=== PATIENT | female | born 1965 | race Caucasian/White ===

== ENCOUNTER 2016-09-07 13:35 | Inpatient (IN) | payer OTHER ==
[~2016-09-07] VITALS: Ht 162.6 cm; Wt 80.7 kg
--- NOTE | ~2016-09-07 | HC ---
[facility] [place] [address] CONSULTATION Name: GISSELLGUILLE DORANTES Room #: 401-I [facility] IN M.R.#: [id number] Admission: 09/07/16 Attend Phys: Anant Bay MD Discharge: 09/11/16 Date of : 67 Report #: [id number] THIS REPORT FOR: //name// CC: NO PCP Anant Bay DATE OF SERVICE: 09/10/2016 TYPE OF REPORT: General surgery consultation. ATTENDING PHYSICIAN: Anant Bay M.D. CONSULTING PHYSICIAN: Troy Faulkner M.D. REASON FOR CONSULTATION: Abdominal pain, nausea and vomiting with distention, weight gain, and increased abdominal girth. HISTORY OF PRESENT ILLNESS: This is a 51-year-old female patient who has had difficulty with intermittent constipation over the past couple of weeks with an 18 pound weight again, abdominal distention, and increase in abdominal girth. She has had difficulty with constipation in the past. She underwent a KUB that showed no evidence for obstruction. She tried an enema and clear liquid diet with no significant improvement in her symptoms. She then developed nausea and vomiting. She was seen in the [facility] where a CT of the abdomen and pelvis showed a recurrent ventral hernia with partially displaced mesh. GI was consulted. The patient underwent various laboratory studies. The patient was evaluated by gastroenterology (Dr. Daniel Haines) and underwent both upper and lower endoscopy. EGD showed grade A erosive esophagitis but was otherwise normal. Her flexible sigmoidoscopy with biopsy showed no evidence for obvious colitis. Small internal hemorrhoids were seen as well as a small anal failure, but this was otherwise normal. No cause for the patient's abdominal pain could be ascertained. I have been asked to see the patient for further evaluation and treatment. PAST MEDICAL AND SURGICAL HISTORY: Includes back pain, peptic ulcer disease, history of. History of ovarian torsion, questionable seizure disorder (anti-seizure medication discontinued as she was felt to have been misdiagnosed), history of lumbar fusion, previous umbilical hernia repair with mesh and cholecystectomy. MEDICATIONS: Please see the electronic medical record for details. ALLERGIES: IV CONTRAST, BETADINE SOAP causes rash and swelling, PENICILLIN causes rash and swelling, SULFA DRUGS causes a rash, and ZOFRAN. She is also allergic IV DYE. [address] [address] CONSULTATION Name: GISSELLGUILLE JAYNA Room #: 401-I [facility] IN .R.#: [id number] Admission: 09/07/16 Attend Phys: Anant Bay MD Discharge: 09/11/16 Date of : 67 Report #: [id number] FAMILY HISTORY: Reviewed and noncontributory to this hospitalization. SOCIAL HISTORY: The patient denies any use of tobacco, alcohol or illicit drugs. 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 REVIEW OF SYSTEMS: As per history of present illness and in addition: GENERAL: The patient denies unintentional weight loss. She has been gaining weight. Denies fever or chills. HEENT: Denies changes in taste, vision, hearing or smell. RESPIRATORY: Denies shortness of breath, COPD or asthma. CARDIOVASCULAR: Denies chest pain or palpitations. GASTROINTESTINAL: As per history of present illness. Denies bright red blood per rectum. GENITOURINARY: Denies dysuria, urgency, increased urinary frequency or hematuria. MUSCULOSKELETAL: Denies myalgia or arthralgia. NEUROLOGICAL: Denies headaches, numbness or tingling. PSYCHIATRIC: Denies depression, anxiety or suicidal ideations. SKIN AND INTEGUMENTARY: Denies new skin lesions, rashes or moles. ENDOCRINE: Denies polydipsia, polyuria, heat or cold intolerance. HEMATOLOGIC: Denies easy bleeding, bruising or anemia. All other review of systems is negative. PHYSICAL EXAMINATION: VITAL SIGNS: Temperature 98.0, blood pressure 126/87, pulse 69, respirations 18, height 5 feet 4 inches and weight 178 pounds. GENERAL: This is a 51-year-old female patient, in no acute distress. She is accompanied by her . HEENT: Atraumatic and normocephalic with moist mucosal membranes. Oropharynx is clear. She has no scleral icterus. NECK: Supple. No appreciable lymphadenopathy. Trachea is midline. CHEST: Clear bilaterally. No crackles or wheezes. CARDIOVASCULAR: Regular rate and rhythm. S1 and S2. ABDOMEN: Soft and slightly distended. She has tenderness to palpation near the umbilicus where an incisional scar seen, which extends down to the pubis. There is no overlying erythema or edema. She has no rebound or guarding. No palpable masses. GENITOURINARY: Normal external female genitalia. EXTREMITIES: No clubbing, cyanosis or edema. NEUROLOGICAL: Cranial nerves 2 through 12 grossly intact. PSYCHIATRIC: Normal mood and affect. SKIN AND INTEGUMENTARY: No acute inflammatory changes, rashes or lesions are present. LABORATORY DATA: CBC from this morning shows a white blood cell count of 5.7, [address] [place] [address] CONSULTATION Name: GUILLE BORRERO Room #: 401-I [facility] IN Mihaela#: [id number] Admission: 09/07/16 Attend Phys: Anant Bay MD Discharge: 09/11/16 Date of : 67 Report #: [id number] hemoglobin 12.1, hematocrit 35.6 and platelets 252. Her electrolytes showed a sodium 141, potassium 3.7, chloride 106, CO2 of 25, BUN 6, creatinine 0.7 and glucose 115. Her transaminases were mildly elevated with an AST of 70, ALT of 152 and alkaline phosphatase 188. RADIOLOGIC STUDIES: CT of the abdomen and pelvis showed previous umbilical hernia repair with mesh present that appeared to be partially displaced with presence of a recurrent hernia at the umbilicus. No acute inflammatory changes were identified. There was no evidence for a bowel obstruction. Abdominal ultrasound showed cholecystectomy changes, but was otherwise negative. IMPRESSION AND PLAN: This is a 51-year-old female patient with abdominal pain as well as increased abdominal girth and unintentional weight gain. She has had chronic constipation. She has evidence for a recurrent ventral hernia with partially displaced mesh. There is no evidence for a small-bowel obstruction on the imaging studies. The patient would benefit from repair of her recurrent ventral hernia. We discussed the pathophysiology and natural history of abdominal wall hernias as well as treatment alternatives and surgical options. The patient will be scheduled for laparoscopic repair of her recurrent incisional ventral hernia. The old mesh will need to be explantated. If there does appear to be bowel involvement, the patient may require bowel resection and open repair of her recurrent hernia. The patient expressed understanding of the risks, benefits, and expectations of the operation, which were discussed in detail. The patient will be scheduled to undergo the operation at the next earliest availability. I sincerely appreciate the opportunity to appear to participate in the care of this patient and will leave further recommendations and orders in the electronic medical record as appropriate. <ELECTRONICALLY SIGNED> By: Troy Faulkner MD, FACS 09/12/16 0924 1520 [id number] Troy Faulkner MD, FACS /nt
--- NOTE | ~2016-09-07 | S ---
[facility] [place] [address] SURGICAL PATH RPT PROCEDURE Name: GUILLE PIMENTEL JAYNA Room #: 401-I ADM IN M.R.#: [id number] Admission: 09/07/16 Date of : 67 Discharge: Report #: [id number] Path Case #: [id number] PATHOLOGY REPORT COLLECTION DATE: 09/09/2016 RECEIVED DATE: 09/10/2016 SUBMITTING PHYS: Dr. Daniel Haines OTHER PHYS: Dr. Anant Bay SPECIMEN(S) RECEIVED: A.Duodenal bx B.Gastric bx C.Colon random bx * * * * * * * * * * * * FINAL DIAGNOSIS: A. "Duodenal bx", biopsy: - Small bowel/duodenal mucosa with minimal histologic alterations; no evidence of celiac sprue. B. "Gastric bx", biopsy: - Gastric mucosa with mild reactive changes and mild chronic inflammation. - Negative H. pylori immunohistochemical stain (block B1); control reacted appropriately. C. "Colon random bx", biopsy: - Colonic mucosa with minimal histologic alteration; no evidence of active, lymphocytic or collagenous colitis. (CLW:kari; d/t: 09/11/2016) PATHOLOGIST: Teetee Galvez M.D. REPORT ELECTRONICALLY SIGNED BY: Teetee Galvez M.D. DATE/TIME: 09/11/2016 16:27 * * * * * * * * * * * * GROSS PATHOLOGY: A. Received in formalin labeled "Guille Pimentel and duodenum," are 4 segments of wild soft tissue measuring 1.2 x 0.3 x 0.2 cm in aggregate dimensions and ranging from 0.2 to 0.4 cm in maximum dimension. The specimen is submitted entirely in cassette A1. B. Received in formalin labeled "Guille Pimentel and gastric," are 3 segments of wild soft tissue measuring 1.0 x 0.3 x 0.2 cm in aggregate dimensions and ranging from 0.3 to 0.4 cm in maximum dimension. The specimen is submitted entirely in cassette B1. C. Received in formalin labeled "Guille Pimentel and colon," are 4 segments of wild soft tissue measuring 1.9 x 0.3 x 0.2 cm in aggregate dimensions and ranging from 0.3 to 0.7 cm in maximum dimension. The [address] [place] [address] SURGICAL PATH RPT PROCEDURE Name: GUILLE PIMENTEL SHEDD Room #: 401-I ADM IN M.R.#: [id number] Admission: 09/07/16 Date of : 67 Discharge: Report #: [id number] Path Case #: [id number] specimen is submitted entirely in cassette C1. (TTL; 09/10/2016) CLINICAL HISTORY: Bloating INITIAL CPT CODE(S): A; 64784 B; 34236, 73651 C; 58974 Professional services performed by [facility] at [address], [place] [address] Technical services performed by [facility] at [address] [place] [address], [address], [place] [address]. [facility] [address] [place] [address] PHONE: [phone] DIRECTOR: Jaspreet Bush M.D. * * * END OF REPORT * * *
--- NOTE | ~2016-09-07 | H ---
[facility] [place] [address] HISTORY AND PHYSICAL Name: GISSELLGUILLE DORANTES Room #: 401-I [facility] IN M.R.#: [id number] Admission: 09/07/16 Attend Phys: Anant Bay MD Discharge: 09/11/16 Date of : 67 Report #: [id number] THIS REPORT FOR: //name// CC: NO PCP Anant Bay DATE OF SERVICE: 09/07/2016 CHIEF COMPLAINT: Abdominal distention, nausea and vomiting. HISTORY OF PRESENT ILLNESS: The patient is a 51-year-old female who started having problems with constipation about 2 weeks ago. Her condition progressively worsened. About a week ago, she noticed significant abdominal distention. She was seen by healthcare provider at her work. She had KUB that reportedly showed no bowel obstruction. The patient was recommended to have enema and clear liquid diet. Her condition did not improve. The patient started vomiting. She presented to the Emergency Room with these symptoms. In the Emergency Room, the patient's evaluation was unremarkable. CT scan of the abdomen was taken, that showed no bowel obstruction. The patient has umbilical hernia and partially displaced mesh. She has no acute findings. The patient has been hemodynamically stable and afebrile. She denies chest pains, shortness of breath, headache, blurry vision or other symptoms. The patient has history of chronic back pain, and she is status post back surgery years ago. She chronically takes narcotics. PAST MEDICAL HISTORY: 1. Back pain, degenerative joint disease, status post lumbar fusion. 2. GI bleed in 2013 due to peptic ulcer disease. 3. Status post umbilical hernia repair. 4. History of ovarian torsion. 5. Questionable seizure, admission for this few months ago. seizure disorder was not confirmed at [facility]. Keppra was discontinued. 6. Head concussion in May 2016. CURRENT MEDICATIONS: Reviewed and documented in the patient's chart. FAMILY HISTORY: Reviewed and not pertinent to the patient's current condition. SOCIAL HISTORY: The patient does not smoke cigarettes and does not drink alcohol. REVIEW OF SYSTEMS: As above in HPI section, all others negative. [facility] [address] [place] [address] HISTORY AND PHYSICAL Name: GISSELLGUILLEROBINA DORANTES Room #: 401-I [facility] IN [facility].#: [id number] Admission: 09/07/16 Attend Phys: Anant Bay MD Discharge: 09/11/16 Date of : 67 Report #: [id number] PHYSICAL EXAMINATION: GENERAL: The patient is healthy-looking young female who is in no apparent distress. VITAL SIGNS: Blood pressure is 132/75, heart rate is 78, respiration is 16, temperature is 98.5. HEENT: Pupils are equal. Eye movements are normal. The patient has anicteric sclerae. NECK: Supple. The patient has no thyromegaly. JVD is not appreciated. The patient does not have cervical lymphadenopathy. RESPIRATORY: Chest moves symmetrically with breathing. Respiratory sounds are normal. CARDIOVASCULAR: The patient has regular rhythm and rate. She has no murmurs, gallops or rubs. GASTROINTESTINAL: Abdomen is soft and slightly distended. Bowel sounds are present. Bowel sounds are normal, not hyperactive. Hepatomegaly or splenomegaly cannot be palpated. MUSCULOSKELETAL: There is no edema, cyanosis or clubbing. Range of motion is normal. NEUROLOGIC: The patient is alert and oriented x 3. She has no neurological deficits. SKIN: Skin is dry and warm. No skin lesions are seen. LABORATORY DATA: CBC with differential is normal. Basic metabolic profile is normal. Liver function tests showed slightly elevated AST, ALT and alkaline phosphatase. Lipase is not available. TSH in May 2016 was approximately 6. ASSESSMENT AND PLAN: 1. Abdominal distention, nausea and vomiting. No hematemesis or hematochezia. CT scan of the abdomen shows no acute findings, and incidentally the patient is found to have partially displaced umbilical hernia mesh. Likely etiology is narcotic-induced constipation. Again, no bowel obstruction is reported. The patient also has nausea and vomiting. I am consulting GI team for further evaluation. Nausea will be treated with Zofran p.r.n. The patient reports severe abdominal pain, and she states that she responded well to Dilaudid, so this medication for now will be continued. Bowel regimen will be initiated. 2. Mildly elevated TSH in May 2016, at 6. TSH will be repeated. 3. The patient does not have a seizure disorder. 4. History of gastrointestinal bleed in 2014 as a result of peptic ulcer [facility] [address] [place] [address] HISTORY AND PHYSICAL Name: GUILLE BORRERO Room #: 401-I DIS IN M.R.#: [id number] Admission: 09/07/16 Attend Phys: Anant Bay MD Discharge: 09/11/16 Date of : 67 Report #: [id number] disease. Currently, hemoglobin and hematocrit is stable. 5. Deep venous thrombosis prophylaxis. We will use SCDs. <ELECTRONICALLY SIGNED> By: Anant Bay MD 09/13/16 1351 1744 1918 Annat Bay MD /nt
--- NOTE | ~2016-09-07 | P ---
[facility] [place] [address] PROCEDURE REPORT Name: GUILLE BORRERO Room #: 401-I [facility] IN M.R.#: [id number] Admission: 09/07/16 Attend Phys: Anant Bay MD Discharge: 09/11/16 Date of : 67 Report #: [id number] THIS REPORT FOR: //name// CC: NO PCP Anant Bay MD DATE OF SERVICE: 09/09/2016 PROCEDURE PERFORMED: Flexible sigmoidoscopy with biopsies. HISTORY OF PRESENT ILLNESS: The patient is a 51-year-old female with abdominal pain, constipation, and increasing abdominal distention. CT was essentially negative other than showing fluid filled colon consistent with diarrhea. The patient; however, had been feeling constipated and was taking stool softeners, eventually mag citrate over the weekend, continued to complain of bloating and pain. Of note, her lipase was actually elevated on admission. Her pancreas was normal on CT scan. The lipase has normalized today at 189. There has been no previous history of pancreatitis. She has had a previous cholecystectomy. She does have mildly elevated liver function test. Workup is under way. DESCRIPTION OF PROCEDURE: The risks and benefits of the procedure were explained to the patient, those risks including, but not limited to bleeding, perforation, and the risk of sedation. She understood these risks and gave informed consent. Sedation was given using propofol per anesthesia. Next, a digital rectal exam was initially performed, which was normal. Next, using a standard Fujinon colonoscope, the scope was placed in the patient's anus and advanced under direct vision to approximately the hepatic flexure area. The prep was fair in the right colon, was somewhat better in the left colon. Multiple washings and aspirations were performed. Most areas were fairly well visualized. There was no evidence of colitis throughout the transverse, descending and sigmoid colon. Random biopsies were obtained to rule out the possibility of microscopic colitis. The rectal mucosa was normal. On retroflexion, small nonbleeding internal hemorrhoids were noted. Also noted, there was a small anal fissure, nonbleeding. The scope was then withdrawn and the procedure terminated. The patient tolerated the procedure well. IMPRESSION: 1. No evidence of obvious colitis. 2. Small internal hemorrhoids. 3. Small anal fissure. 4. Otherwise, normal flexible sigmoidoscopy. RECOMMENDATIONS: 1. Await biopsy results. 2. We would recommend Analpram b.i.d. for the next 2 weeks and on a p.r.n. [address] [address] PROCEDURE REPORT Name: GUILLE BORRERO Room #: 401-I [facility] IN M.R.#: [id number] Admission: 09/07/16 Attend Phys: Anant Bay MD Discharge: 09/11/16 Date of : 67 Report #: [id number] basis. 3. Etiology of abdominal pain and distention is unclear. We will await biopsy results to rule out sprue and microscopic colitis. The patient is not constipated at this time and her colon was completely decompressed at the end of the procedure. There was no significant solid stool noted throughout the exam today. She did have an elevated lipase suggesting the possibility of pancreatitis, but this is now normalized. She also has had mesh noted on CT, which has partially displaced, unclear if this would cause abdominal pain due adhesions. Thank you for allowing me to participate in her care. <ELECTRONICALLY SIGNED> By: Daniel Haines MD 09/12/16 0820 1705 2358 Daniel Haines MD /nt
--- NOTE | ~2016-09-07 | P ---
[facility] [place] [address] PROCEDURE REPORT Name: GUILLE BORRERO Room #: 401-I [facility] IN M.R.#: [id number] Admission: 09/07/16 Attend Phys: Anant Bay MD Discharge: 09/11/16 Date of : 67 Report #: [id number] THIS REPORT FOR: //name// CC: NO PCP Anant Bay MD DATE OF SERVICE: 09/09/2016 PROCEDURE PERFORMED: Upper endoscopy with biopsies. HISTORY OF PRESENT ILLNESS: The patient is a 51-year-old female who was admitted on 09/07/2016, with complaints of constipation and abdominal pain. She reports weight gain and increased distention of her abdomen. She tried several different regimens including stool softener and later mag citrate as well as enemas over the weekend. She does take pain medications for chronic back pain. She reports thin stools with a small amount of . She also has a history of elevated liver function tests. She had a previous cholecystectomy. CT scan of the abdomen and pelvis on admission shows previous umbilical hernia repair with mesh. The mass is now partially displaced. Pancreas was normal. Colon was fluid filled. Suggesting borderline diarrhea. She then underwent an ultrasound of the abdomen yesterday. No acute intra-abdominal processes were identified. There was no evidence of ascites. She also had an elevated lipase yesterday at 851. Plan is for EGD and flexible sigmoidoscopy. DESCRIPTION OF PROCEDURE: The risks and benefits of the procedure were explained to the patient, those risks including, but not limited to bleeding, perforation, the risk of sedation. She understood these risks and gave informed consent. Sedation was given using propofol per anesthesia. Next, using a standard Reppifyinon upper endoscope, the scope was placed in the patient's mouth and advanced under direct vision through the esophagus, stomach and into the second portion of the duodenum. The upper and mid esophagus was normal in appearance. In the distal esophagus, there was evidence of grade A erosive esophagitis. Overall, the gastric mucosa was normal. Because of the patient's symptoms, biopsies were obtained to rule out H. pylori. The pylorus was normal and patent. The duodenal bulb, first and second portion were all normal. Biopsies were also obtained to rule out the possibility of celiac sprue. The scope was then withdrawn and the procedure terminated. The patient tolerated the procedure well. IMPRESSION: 1. Grade A erosive esophagitis. 2. Otherwise, normal upper endoscopy. RECOMMENDATIONS: 1. Await biopsy results. [address] [address] PROCEDURE REPORT Name: GUILLE BORRERO Room #: 401-I [facility] IN M.R.#: [id number] Admission: 09/07/16 Attend Phys: Anant Bay MD Discharge: 09/11/16 Date of : 67 Report #: [id number] 2. Recommend daily PPI therapy. 3. We will proceed with flexible sigmoidoscopy next today. Thank you for allowing me to participate in her care. <ELECTRONICALLY SIGNED> By: Daniel Haines MD 09/12/16 0820 1702 2343 Daniel Haines MD /nt
--- NOTE | ~2016-09-07 | O ---
[facility] [place] [address] OPERATIVE REPORT Name: GUILLE BORRERO Room #: 401-I [facility] IN M.R.#: [id number] Admission: 09/07/16 Attend Phys: Anant Bay MD Discharge: 09/11/16 Date of : 67 Report #: [id number] THIS REPORT FOR: //name// CC: Anant Bay DATE OF SERVICE: 09/11/2016 SURGEON: Troy Faulkner M.D. CENTER MACHINE SET UP OPERATOR: Wolfgang rAguelles MD. SECOND ENGINEERING COORDINATOR: LIANNE Tovar. PREOPERATIVE DIAGNOSES: 1. Recurrent incisional ventral hernia with possible small-bowel obstruction. 2. Chronic pain. POSTOPERATIVE DIAGNOSES: 1. Recurrent incarcerated incisional ventral hernia. 2. Intraabdominal adhesions. 3. Chronic pain. PROCEDURES: 1. Laparoscopic repair of recurrent incarcerated incisional ventral hernia with mesh (Ventralight ST, 15.2 cm round with ECHO positioning system). 2. Explantation of prior hernia mesh. 3. Laparoscopic lysis of adhesions (47 minutes). ANESTHESIA: General endotracheal anesthesia and local anesthetic. ESTIMATED BLOOD LOSS: 5 mL. SPECIMENS: 1. Explanted hernia mesh. 2. Incarcerated hernia content. COMPLICATIONS: None appreciated. INDICATIONS FOR PROCEDURE: This is a 51-year-old female patient who has had difficulty with chronic pain, chronic constipation and increasing abdominal girth recently. She has undergone numerous studies, none of which have shown any cause for her symptoms. A CT of abdomen and pelvis did reveal a recurrent hernia at the umbilicus (ventral hernia) with the previously placed mesh displaced. The patient had an exam that was consistent with this. She presents now for laparoscopic repair of her recurrent incisional ventral hernia with mesh explantation. [facility] [address] [place] [address] OPERATIVE REPORT Name: GUILLE BORRERO Room #: 401-I [facility] IN M.R.#: [id number] Admission: 09/07/16 Attend Phys: Anant Bay MD Discharge: 09/11/16 Date of : 67 Report #: [id number] OPERATIVE FINDINGS: Upon entrance in the abdominal cavity, the patient had intra-abdominal adhesions which required 47 minutes of takedown just to identify the hernia. After doing so, it appeared that the hernia had recurred around the periphery of the mesh. There was no bowel involvement. After taking down the adhesions off the mesh, and after removal of the mesh, multiple incisional ventral hernias were seen in the anterior abdominal wall near the umbilicus. These represented recurrent incarcerated incisional ventral hernias. There was no bowel involvement with the defects. The defects spanned 7 cm long x 5 cm wide. A 15.2 cm round mesh patch was chosen for the repair. After placing the mesh, there was good fascial overlap. There was no rippling of the mesh. No other significant intraabdominal pathology was identified. The bowel was run from the terminal ileum to the ligament of Treitz and there were no signs of bowel obstruction. DESCRIPTION OF PROCEDURE IN DETAIL: After the benefits and risks of the procedure were explained to the patient, which include but were not limited to risks of bleeding, infection, possible need for conversion to an open procedure, postoperative pain, postoperative expectations, informed consent was obtained. The patient was identified in the preoperative holding area. The patient was given IV antibiotics as documented in the chart in line with the SCIP protocol. The patient was then taken to the operating room and she was placed in the supine position. SCDs were placed on the patient's bilateral lower extremities and pneumatic compression was initiated. The patient was given IV sedation and she was intubated without incident. Her arms were tucked. The patient's abdomen was then prepped and draped in the standard sterile fashion. A time-out was performed to identify the correct patient and procedure. Local anesthetic was infiltrated into the skin and subcutaneous tissue in the left upper quadrant of the abdomen where a 5 mm incision was made transversely. A 5 mm Visiport was then placed intraperitoneally. Pneumoperitoneum was achieved with insufflation of carbon dioxide to 15 mmHg. A 30-degree angled laparoscope was then inserted. A left lateral 5 mm and left lower quadrant 5 mm port were each placed under direct visualization after local anesthetic was infiltrated into the skin and subcutaneous tissue and appropriately sized incisions were made. Operative findings were as noted above. The adhesions from the omentum to the anterior abdominal wall, omentum to mesh, and omentum to the recurrent hernia were carefully taken down with blunt dissection, sharp dissection and judicious use of the ultrasonic dissector. There was no bowel involvement. After isolating the mesh, the mesh was dissected off of the anterior abdominal wall with appropriate traction and the ultrasonic dissector. Bleeding points were made hemostatic with the ultrasonic dissector. The explanted mesh was then removed to be sent for specimen. Prolene sutures in the anterior abdominal wall were carefully removed as well. The hernia defect was then measured. Abdominal wall fat was dissected off of [facility] [address] [place] [address] OPERATIVE REPORT Name: GUILLE BORRERO Room #: 401-I [facility] IN M.R.#: [id number] Admission: 09/07/16 Attend Phys: Anant Bay MD Discharge: 09/11/16 Date of : 67 Report #: [id number] the abdominal wall and removed as well including the incarcerated hernia content. After measuring the span of the defects, the 15.2 cm round mesh patch was chosen for the repair. The mesh was prepared on the backtable, then advanced into the abdominal cavity. The mesh was unrolled with the balloon side down. The eyelet of the catheter was grasped through a small stab incision above the umbilicus through the midline and through a bridge of fascia. The eyelet was delivered, then excised. The catheter was used to inflate the balloon with the inflation apparatus. The balloon would serve as a scaffolding for the mesh for initial tack placement. The catheter was clamped at the skin level. The mesh was positioned such that the balloon faced internally. The mesh was tacked circumferentially at 1 cm intervals using the SecureStrap absorbable fixation device. The mesh was tacked around the inflation balloon as well. The balloon was removed under direct visualization. Additional tacks were placed to ensure that the mesh would not shift position intraabdominally. The explanted mesh was removed through the left lateral port, which had been converted to a 12 mm port prior to placement of mesh within the abdominal cavity. The incarcerated hernia content was removed from the patient's abdominal cavity as well. Other findings are as noted above. The left lateral 12 mm port site fascial opening was closed with an 0 PDS suture under direct visualization to ensure no incorporation of intraabdominal content. In addition to this, prior to placing tacks within the mesh, the intraabdominal pressure was set at 8 mmHg. An 0 PDS suture was placed in the Misael-Malik fascial closure device through an area of bleeding with good hemostatic result. No other significant intraabdominal pathology was identified. The abdominal cavity was then desufflated. The incisions were closed with interrupted subcuticular 4-0 Monocryl sutures and Dermabond. Dermabond was applied to the puncture site as well. The patient tolerated the procedure well. She was awakened, extubated, and taken to recovery room in stable condition with no apparent intraoperative complications. <ELECTRONICALLY SIGNED> By: Troy Faulkner MD, FACS 09/12/16 0947 1533 1623 Tory Faulkner MD, FACS /nt
--- NOTE | ~2016-09-07 | S ---
[facility] [place] [address] SURGICAL PATH RPT PROCEDURE Name: GUILLE PIMENTEL JAYNA Room #: 401-I DIS IN M.R.#: [id number] Admission: 09/07/16 Date of : 67 Discharge: 09/11/16 Report #: [id number] Path Case #: [id number] PATHOLOGY REPORT COLLECTION DATE: 09/11/2016 RECEIVED DATE: 09/11/2016 SUBMITTING PHYS: Dr. Troy Faulkner OTHER PHYS: Dr. Anant Arguelles SPECIMEN(S) RECEIVED: A.Ventral hernia mesh B.Contents of incarcerated hernia (ventral) * * * * * * * * * * * * FINAL DIAGNOSIS: A. Ventral hernia mesh, repair: - Reactive fibrovascular and fibroadipose tissue adherent to mesh. - Surgical mesh measuring 6.4 x 5.3 cm. (GROSS EXAM ONLY) B. Contents of incarcerated ventral hernia, repair: - Reactive and congested fibrovascular/fibroadipose tissue. (IUV:csd; d/t: 09/15/2016) PATHOLOGIST: Shauna Trotter M.D. REPORT ELECTRONICALLY SIGNED BY: Shauna Trotter M.D. DATE/TIME: 09/15/2016 16:06 * * * * * * * * * * * * GROSS PATHOLOGY: A. Received in formalin labeled "Guille Pimentel and ventral hernia mesh." Received is a 6.4 x 5.3 x 0.9 cm blood-tinged, wild, and irregular portion of surgical mesh with a moderate amount of attached yellow-wild, adipose tissue. A digital image is taken. Correctional Captain sections of soft tissue are submitted in cassette A1. B. Received in formalin labeled "Guille Pimentel and contents of incarcerated ventral hernia," are several pieces of blood-tinged, yellow-wild to pink-wild, membranous, and lobulated fibroadipose tissue measuring 7.5 x 3.5 x 1.3 cm in aggregate. No nodules or lesions are identified. Correctional Captain tissue is submitted in cassette B1. (TTL; 09/12/2016) CLINICAL HISTORY: Ventral hernia INITIAL CPT CODE(S): [address] [place] [address] SURGICAL PATH RPT PROCEDURE Name: GUILLE PIMENTEL JAYNA Room #: 401-I DIS IN M.R.#: [id number] Admission: 09/07/16 Date of : 67 Discharge: 09/11/16 Report #: [id number] Path Case #: [id number]; [id number] B; [id number] Professional services performed by [facility] at [address] , [place] [address] Technical services performed by [facility] at [address] [place] [address], [address], [place] [address]. [facility] [address] [place] [address] PHONE: [phone] DIRECTOR: Jaspreet Bush M.D. * * * END OF REPORT * * *
[2016-09-07 13:35] VITALS: BP 148/109
[~2016-09-07 13:35] MED LIST: CIPRO500 MG PO; CITRATE OF MAG296 ML PO; COLACE100 MG PO; CYMBALTA30 MG PO; DIAZEPAM 10 MG10 M2 PO; DIAZEPAM2 MG PO; ESTRADIOL 1 MG T1 M1 PO; HYDROCODONE-AP1 EAC6 PO; IBUPROFEN 600600 M1 PO; IRON325 PO; KEPPRA 500 MG500 M1 PO; LODINE XL400 MG PO; NORCO 10-325 T1 EACH PO; NORCO 5-325 TA1 EACH PO; PHENAZOPYRIDIN200 M2 PO; TIZANIDINE HCL4 MG PO; TRAMADOL 50 MG50 MG PO; VICODIN 5-3001 EACH PO; VICODIN 5-5001 EACH PO; VIMPAT50 MG PO; ZANAFLEX4 M1 PO; ZANAFLEX4 MG PO
[2016-09-07 14:38] LABS: ABSOLUTE NEUTROPHILS 3.2 thou/uL (1.4-8.2); BASOPHILS 0.8 % (0.0-2.0); EOSINOPHILS 1.1 % (0.0-3.0); HEMATOCRIT 37.9 % (37.0-47.0); HEMOGLOBIN 13.2 gm/dL (12.0-15.0); LYMPHOCYTES 31.1 % (24.0-44.0); MANUAL DIFF NO; MCH 28.6 pg (26.0-34.0); MCHC 34.8 g/dL (28.0-37.0); MONOCYTES 5.8 % (1.0-8.0); PLATELET COUNT 296 thou/uL (150-400); POLYS 61.2 % (36.0-66.0); RBC 4.62 mil/uL (4.20-5.00); RDW 13.3 % (10.5-14.5); WBC 5.3 thou/uL (4.0-11.0)
[2016-09-07 14:41] LABS: ANION GAP 9 mmol/L (7-16); BUN 5 mg/dL (7-18); CHLORIDE 102 mmol/L (98-107); CO2 26 mmol/L (21-32); CREATININE 0.6 mg/dL (0.6-1.3); GLUCOSE 99 mg/dL (70-99); POTASSIUM 4.1 mmol/L (3.5-5.1); SODIUM 137 mmol/L (136-145)
[2016-09-07 14:47] LABS: ALBUMIN 3.9 g/dL (3.4-5.0); ALKALINE PHOSPHATASE 139 U/L (46-116); DIRECT BILIRUBIN < 0.1 mg/dL (<0.1-0.3); SGOT 57 U/L (15-37); SGPT 95 U/L (30-65); TOTAL BILIRUBIN 0.3 mg/dL (<0.1-1.0); TOTAL PROTEIN 7.4 g/dL (6.4-8.2)
[2016-09-07 16:48] VITALS: BP 132/75
[2016-09-07] MEDS ORDERED: NORCO 10-325 T1 EACH PO (17:37)
[2016-09-07] MEDS ORDERED: COLACE100 MG PO (17:38)
[2016-09-07] MEDS ORDERED: MIRALAX17 GM PO (17:39)
[2016-09-07 17:45] VITALS: BP 157/84
[2016-09-07 22:50] VITALS: BP 101/59
[2016-09-08 03:35] VITALS: BP 90/64
[2016-09-08 06:53] LABS: ALBUMIN 3.6 g/dL (3.4-5.0); CREATININE 0.7 mg/dL (0.6-1.3); POTASSIUM 4.2 mmol/L (3.5-5.1); TOTAL BILIRUBIN 0.2 mg/dL (<0.1-1.0); TOTAL PROTEIN 6.9 g/dL (6.4-8.2)
[2016-09-08 08:00] VITALS: BP 116/72
[2016-09-08 16:00] VITALS: BP 124/78
[2016-09-08 19:25] VITALS: BP 140/99
[2016-09-09 03:05] VITALS: BP 109/75
[2016-09-09 06:48] LABS: ABSOLUTE NEUTROPHILS 3.4 thou/uL (1.4-8.2); BASOPHILS 0.5 % (0.0-2.0); EOSINOPHILS 1.3 % (0.0-3.0); HEMATOCRIT 36.4 % (37.0-47.0); HEMOGLOBIN 12.5 gm/dL (12.0-15.0); LYMPHOCYTES 31.7 % (24.0-44.0); MCH 28.6 pg (26.0-34.0); MCHC 34.3 g/dL (28.0-37.0); MCV 83.5 fL (80.0-100.0); MONOCYTES 5.4 % (1.0-8.0); PLATELET COUNT 289 thou/uL (150-400); POLYS 61.1 % (36.0-66.0); RBC 4.36 mil/uL (4.20-5.00); RDW 13.6 % (10.5-14.5); WBC 5.5 thou/uL (4.0-11.0)
[2016-09-09 06:49] LABS: PROTIME 10.7 Seconds (9.3-11.4)
[2016-09-09 06:50] LABS: MANUAL DIFF NO
[2016-09-09 06:54] LABS: ALBUMIN 3.5 g/dL (3.4-5.0); CALCIUM 9.2 mg/dL (8.5-10.1); CREATININE 0.6 mg/dL (0.6-1.3); TOTAL BILIRUBIN 0.4 mg/dL (<0.1-1.0)
[2016-09-09 07:12] LABS: % SATURATION 42 % (20-39); ALBUMIN 3.6 g/dL (3.4-5.0); ALKALINE PHOSPHATASE 200 U/L (46-116); DIRECT BILIRUBIN < 0.1 mg/dL (<0.1-0.3); IRON 106 ug/dL (50-170); SGOT 110 U/L (15-37); SGPT 182 U/L (30-65); TIBC 253 ug/dL (250-450); TOTAL BILIRUBIN 0.4 mg/dL (<0.1-1.0); TOTAL PROTEIN 6.8 g/dL (6.4-8.2); UIBC 147 ug/dL
[2016-09-09 08:13] VITALS: BP 122/85
[2016-09-09 14:11] LABS: HEPATITIS C VIRUS AB <0.1 (0.0-0.9); IgG 751 mg/dL (700-1600)
[2016-09-09 17:34] VITALS: BP 139/81
[2016-09-09 20:24] VITALS: BP 116/69
[2016-09-10 04:25] VITALS: BP 98/52
[2016-09-10 05:22] LABS: BASOPHILS 0.7 % (0.0-2.0); EOSINOPHILS 1.8 % (0.0-3.0); HEMATOCRIT 35.6 % (37.0-47.0); HEMOGLOBIN 12.1 gm/dL (12.0-15.0); LYMPHOCYTES 21.3 % (24.0-44.0); MANUAL DIFF NO; MCH 28.5 pg (26.0-34.0); MCV 83.9 fL (80.0-100.0); MONOCYTES 6.6 % (1.0-8.0); PLATELET COUNT 252 thou/uL (150-400); POLYS 69.6 % (36.0-66.0); RBC 4.25 mil/uL (4.20-5.00); RDW 13.5 % (10.5-14.5); WBC 5.7 thou/uL (4.0-11.0)
[2016-09-10 05:53] LABS: ALBUMIN 3.4 g/dL (3.4-5.0); CREATININE 0.7 mg/dL (0.6-1.3); MAGNESIUM 1.7 mg/dL (1.8-2.4); POTASSIUM 3.7 mmol/L (3.5-5.1); TOTAL BILIRUBIN 0.2 mg/dL (<0.1-1.0); TOTAL PROTEIN 6.8 g/dL (6.4-8.2)
[2016-09-10 08:57] VITALS: BP 126/87
[2016-09-10 13:12] LABS: CERULOPLASMIN 29.8 mg/dL (19.0-39.0)
[2016-09-10 16:32] VITALS: BP 141/96
[2016-09-10 21:58] VITALS: BP 143/92
[2016-09-11 05:57] VITALS: BP 115/77
[2016-09-11 08:22] VITALS: BP 141/105
[2016-09-11 09:12] LABS: ALBUMIN 3.8 g/dL (3.4-5.0); ALKALINE PHOSPHATASE 182 U/L (46-116); DIRECT BILIRUBIN < 0.1 mg/dL (<0.1-0.3); SGOT 30 U/L (15-37); SGPT 116 U/L (30-65); TOTAL BILIRUBIN 0.3 mg/dL (<0.1-1.0); TOTAL PROTEIN 6.8 g/dL (6.4-8.2)
[2016-09-11 14:07] VITALS: BP 146/89
[2016-09-11] MEDS ORDERED: PROTONIX40 M2 PO (14:49)
[2016-09-11] MEDS ORDERED: PHENERGAN 25 MG25 M1 PO (14:49)
[2016-09-11] MEDS ORDERED: PERCOCET PO (14:49)
[2016-09-11 15:10] LABS: MITOCHONDRIAL ANTIBODY 4.8 Units (0.0-20.0)
[2016-09-11 17:30] VITALS: BP 146/89
== END 2016-09-11 18:11 | disposition home or self-care (01) | DRG 335 ==
LOC: ER 13:35 → EROBS 16:11 → 4N 16:11
PROVIDERS: Emergency Medicine; Internal Medicine; Internal Medicine Endocrinology, Diabetes & Metabolism; Internal Medicine Gastroenterology; Nurse Practitioner Adult Health
PROC: 0DB68ZX Excision of Stomach, Via Natural or Artificial Opening Endoscopic, Diagnostic (ICD-10-PCS; 2016-09-09)
PROC: 0DB98ZX Excision of Duodenum, Via Natural or Artificial Opening Endoscopic, Diagnostic (ICD-10-PCS; 2016-09-09)
PROC: 0DBN8ZX Excision of Sigmoid Colon, Via Natural or Artificial Opening Endoscopic, Diagnostic (ICD-10-PCS; 2016-09-09)
PROC: 02HV33Z Insertion of Infusion Device into Superior Vena Cava, Percutaneous Approach (ICD-10-PCS; 2016-09-10)
PROC: 0DNW4ZZ Release Peritoneum, Percutaneous Endoscopic Approach (ICD-10-PCS; principal; 2016-09-11)
PROC: 0WUF4JZ Supplement Abdominal Wall with Synthetic Substitute, Percutaneous Endoscopic Approach (ICD-10-PCS; principal; 2016-09-11)
DX: K43.0 Incisional hernia with obstruction, without gangrene (principal); K85.90 Acute pancreatitis without necrosis or infection, unspecified; F11.20 Opioid dependence, uncomplicated; M19.90 Unspecified osteoarthritis, unspecified site; G89.29 Other chronic pain; M54.9 Dorsalgia, unspecified; K59.00 Constipation, unspecified; Z79.899 Other long term (current) drug therapy; K66.0 Peritoneal adhesions (postprocedural) (postinfection); Z90.710 Acquired absence of both cervix and uterus; Z90.49 Acquired absence of other specified parts of digestive tract; Z88.2 Allergy status to sulfonamides; Z88.0 Allergy status to penicillin; Z91.041 Radiographic dye allergy status; Z87.891 Personal history of nicotine dependence; Z87.11 Personal history of peptic ulcer disease
CPT/HCPCS: 10091; 27001; 50101; 50249; 50386; 50455; 50555; 50558; 50962; 50978; 50984; 52265; 53307; 54022; 54118; 56462; 56525; 56526; 57092; 62110; 62900; 70005

== ENCOUNTER → 2016-10-03 | Outpatient (CLI) | payer OTHER ==
[~2016-10-03] MED LIST changes: +KEFLEX500 MG PO; +MIRALAX17 GM PO; +NEURONTIN 300300 M1 PO; +PERCOCET PO; +PHENERGAN 25 MG25 M1 PO; +PROTONIX40 M2 PO
== END ==
LOC: ULTRA 10:19
DX: M79.89 Other specified soft tissue disorders (principal)

== ENCOUNTER → 2016-10-07 | Outpatient (CLI) | payer OTHER | LOC: CAT 11:57 | DX: R19.00 Intra-abdominal and pelvic swelling, mass and lump, unspecified site (principal) ==

== ENCOUNTER → 2017-07-20 | Outpatient (CLI) | payer OTHER ==
[~2017-07-20] MED LIST changes: +VALIUM5 MG PO
== END ==
LOC: ULTRA 11:17
DX: R10.31 Right lower quadrant pain (principal); R10.2 Pelvic and perineal pain; R19.00 Intra-abdominal and pelvic swelling, mass and lump, unspecified site; Z90.710 Acquired absence of both cervix and uterus

== ENCOUNTER 2018-02-01 13:44 | Inpatient (IN) | payer OTHER ==
[~2018-02-01] VITALS: Ht 157.5 cm; Wt 82.3 kg
--- NOTE | ~2018-02-01 | EKG ---
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 : 1965 Requested By: Sae Lerner Order Number: [id number] MD: Tristen Gonzalez Measurements Intervals [place] Rate: 76 P: 44 HI: 165 QRS: -17 QRSD: 99 T: 52 QT: 404 QTc: 455 Interpretive Statements Sinus rhythm Borderline left axis deviation Compared to ECG 02/01/2018 13:56:17 No significant changes Electronically Signed On 02-02-2018 7:25:44 CDT by Tristen Gonzalez [email or web address] <ELECTRONICALLY SIGNED> By: Tristen Gonzalez MD, [facility] 02/02/18 0725 52 Tristen Gonzalez MD, [facility] /EPI
--- NOTE | ~2018-02-01 | HC ---
[facility] [place] [address] CONSULTATION Name: GUILLE BORRERO Room #: 212-P ADM IN M.R.#: [id number] Admission: 02/01/18 Attend Phys: Sae Lerner MD Discharge: Date of : 67 Report #: [id number] THIS REPORT FOR: //name// CC: Sae Lerner DATE OF SERVICE: 02/01/2018 TYPE OF REPORT: Cardiology consultation. INDICATION: Chest pain. HISTORY OF PRESENT ILLNESS: This is a 52-year-old female presenting with left-sided chest pain for the past week. She has noticed a sharp discomfort on the left side of her chest, radiating up to the shoulder and back area. It can occur at rest and with exertion for the past week. Yesterday, while walking up a flight of stairs, she developed similar symptoms, associated with shortness of breath. It was relieved with rest. This morning, the patient developed left-sided chest pains at work. It was associated with diaphoresis and tachycardia. She offers no complaints of fever, chills, nausea or diarrhea. These episodes can last anywhere from 5-10 minutes in duration. When she has the pain, there is no change with movement of her arms, palpation over the area or belching. There is no history of PND or orthopnea. PAST MEDICAL HISTORY: Denies any history of diabetes mellitus or hypertension. Noted to have elevated blood pressure on multiple readings in the hospital. ALLERGIES: Include ZOFRAN, PENICILLIN, SULFA and IVP DYE. MEDICATIONS: Include Protonix 40 mg, oxycodone and cephalexin. SOCIAL HISTORY: Denies tobacco use. FAMILY HISTORY: Two aunts with history of ME as well as a first cousin. REVIEW OF SYSTEMS: A full 10-point review of systems performed. Only the pertinent positives and negatives are described in the HPI. PHYSICAL EXAMINATION: VITAL SIGNS: Blood pressure is 160/100 and heart rate is 74 beats per minute. GENERAL APPEARANCE: This is a well-developed, well-nourished female, in no acute distress. HEAD AND EYES: Normocephalic. Sclerae are anicteric. ENT: Oral mucosa moist. NECK: Supple. LUNGS: Clear to auscultation. CARDIAC: Regular rate and rhythm. S1 and S2 positive. [facility] [address] [place] [address] CONSULTATION Name: GUILLE BORRERO Room #: [address] [place] [address] IN M.R.#: [id number] Admission: 02/01/18 Attend Phys: Sae Lerner MD Discharge: Date of : 67 Report #: [id number] ABDOMEN: Soft and nontender. EXTREMITIES: No cyanosis. Nontender. No edema. NEUROLOGICAL: Alert and oriented x 3. RADIOLOGICAL DATA: EKG reveals sinus rhythm, otherwise unremarkable. LABORATORY DATA: Troponin is negative. White count is 6.3 and hemoglobin is 13.8. Creatinine is 0.7. ASSESSMENT AND PLAN: 1. Unstable angina. Her symptoms are concerning for ischemic heart disease. They have been progressive, associated with shortness of breath and diaphoresis. We discussed the pros and cons of noninvasive stress testing versus a cardiac catheterization. The patient is concerned and will proceed with a cardiac catheterization. 2. Hypertension, we will start a beta sudha at this time. 3. Gastroesophageal reflux disease, continue with proton pump inhibitor. <ELECTRONICALLY SIGNED> By: Charlie Moreno MD 02/02/18 0755 1727 2228 Charlie Moreno MD /nt
--- NOTE | ~2018-02-01 | EKG ---
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 : 1965 Requested By: Michael Millan Order Number: [id number] MD: Tristen Gonzalez Measurements Intervals [place] Rate: 74 P: -14 CA: 165 QRS: -16 QRSD: 88 T: 45 QT: 401 QTc: 445 Interpretive Statements Sinus rhythm Borderline left axis deviation Compared to ECG 05/26/2016 10:16:50 No significant change was found Electronically Signed On 02-01-2018 17:04:17 CDT by Tristen Gonzalez [email or web address] <ELECTRONICALLY SIGNED> By: Tristen Gonzalez MD, [facility] 02/01/18 1704 1356 55 Tristen Gonzalez MD, [facility] /EPI
--- NOTE | ~2018-02-01 | CATHLAB ---
[facility] [address] [place] [place] [address] INVASIVE PROCEDURE REPORT Name: GUILLE BORRERO Room #: 212-P [facility] IN .R.#: [id number] Admission: 02/01/18 Attend Phys: Sae Lerner, Discharge: Date of : 67 Date of Service: 02/02/18 1516 Report #: [id number] THIS REPORT FOR: //name// APPROVED REPORT Study performed: 02/02/2018 08:14:31 Patient Details Patient Status: In-Patient Room #: The patient is a 52 year-old female Event Personnel Charlie Moreno Septic Tank Service Technician, Dariela Lynn, HYDROMETEOROLOGIST Monitor, Claudio Estevez RN RN, Fernando Xie RN, Ronnie Rae Procedures Performed Art Access - R femoral artery* Left Heart Cath w/or w/o Coronaries [id number] [facility] [address] Initial Mod Sed Same Phys/QHP Gr5y [id number] Hemostasis with Manual pressure Indication Chest pain Procedure Narrative The Right Groin^ was infiltrated with 1% Lidocaine subcutaneous anesthesia. A PINNACLE 4FR Sheath #[id number] sheath was inserted into the RFA^. Coronary angiography was performed using coronary diagnostic catheters. The right coronary system was accessed and visualized with a JR4 catheter. The left coronary system was accessed and visualized with a JL4 catheter. The left ventricle was accessed and visualized with a Angled Pigtail catheter. Left ventricular/Aortic Valve gradient assessed via catheter pullback. Left ventriculogram was performed in 30 degree projection. Hemostasis was obtained with manual pressure following sheath removal without any complications. The patient tolerated the procedure well and there were no complications associated with the procedure. There was no hematoma. Intraoperative Conscious Sedation Sedation start time: 08:19 Case end Time: 08:55 Fentanyl 50 mcg Versed 1 mg Fluoro Time: 1.46 minutes [facility] [place] [address] INVASIVE PROCEDURE REPORT Name: GUILLE BORRERO Room #: 212-P [facility] IN ..#: [id number] Admission: 02/01/18 Attend Phys: Sae Lerner, Discharge: Date of : 67 Date of Service: 02/02/18 1516 Report #: [id number] Dose: DAP 2712.30 cGycm2 355 mGy Contrast Type and Amount: Omnipaque 70 ml Coronary Angiography The patient's coronary anatomy is right dominant. Diagnostic Cath Left Main Patent vessel, with no flow-limiting lesions. LAD Moderate size caliber vessel, tapers down to a small size caliber vessel in the distal segment. There are no flow-limiting lesions. There may be some minimal luminal irregularities in the distal segment. Diagonal 1 Moderate size caliber vessel, with no flow-limiting lesions. Diagonal 2 Moderate size caliber vessel, with no flow-limiting lesions. Circumflex Patent vessel, with no flow-limiting lesions. OM1 Small size caliber vessel, with no flow-limiting lesions. OM2 Small size caliber vessel, with no flow-limiting lesions. Right Coronary Dominant vessel, with no flow-limiting lesions. R PDA Patent vessel, with no flow-limiting lesions. RPLV Small size caliber vessel, with no flow-limiting lesions. Left Ventriculography The left ventricle is normal in size with normal contractility. The left ventricular ejection fraction is estimated to be 55-60%. Hemodynamics The aortic pressure is 153/97 mmHg with a mean of 123 mmHg. The left ventricular pressure is 172/4 mmHg with a mean of mmHg. The left ventricular end diastolic pressure is 37 mmHg. Conclusion 1. Angiographically patent coronary arteries. 2. There may be some minimal luminal irregularities in the distal LAD. 3. Normal LV systolic function. 4. Recommend risk factor management. <ELECTRONICALLY SIGNED> By: Charlie Moreno MD 02/02/18 1516 1516 1516 Charlie Moreno MD /INF
[~2018-02-01 13:44] MED LIST changes: -VALIUM5 MG PO
[2018-02-01 13:45] VITALS: BP 160/107
[2018-02-01 14:18] LABS: HEMATOCRIT 39.1 % (37.0-47.0); HEMOGLOBIN 13.8 gm/dL (12.0-15.0); MCHC 35.3 g/dL (28.0-37.0); MCV 85.2 fL (80.0-100.0); RBC 4.59 mil/uL (4.20-5.00); RDW 13.8 % (10.5-14.5); WBC 6.3 thou/uL (4.0-11.0)
[2018-02-01] MEDS ORDERED: VALIUM5 MG PO (14:20)
[2018-02-01] MEDS ORDERED: TRAMADOL 50 MG50 MG PO (14:21)
[2018-02-01 14:26] LABS: ANION GAP 8 mmol/L (7-16); BUN 5 mg/dL (7-18); CALCIUM 9.3 mg/dL (8.5-10.1); CHLORIDE 104 mmol/L (98-107); CO2 28 mmol/L (21-32); CREATININE 0.7 mg/dL (0.6-1.0); GLUCOSE 100 mg/dL (74-106); POTASSIUM 3.6 mmol/L (3.5-5.1); SODIUM 140 mmol/L (136-145)
[2018-02-01 14:34] LABS: ALBUMIN 4.1 g/dL (3.4-5.0); SGOT 24 U/L (15-37); SGPT 31 U/L (30-65); TOTAL BILIRUBIN 0.2 mg/dL (<0.1-1.0); TOTAL PROTEIN 7.7 g/dL (6.4-8.2); TROPONIN-I <0.06 ng/mL (<0.06)
[2018-02-01 15:52] VITALS: BP 138/96
[2018-02-01 16:00] VITALS: BP 156/88
[2018-02-01 16:14] VITALS: BP 162/107
[2018-02-01 20:40] VITALS: BP 143/91
[2018-02-01 23:16] VITALS: BP 119/77
[2018-02-02] VITALS (12 sets, daily range): BP systolic 113–130; BP diastolic 73–87
[2018-02-02 17:40] LABS: HEMOGLOBIN 13.6 gm/dL (12.0-15.0); MCH 28.9 pg (26.0-34.0); MCHC 33.9 g/dL (28.0-37.0); MCV 85.4 fL (80.0-100.0); RBC 4.69 mil/uL (4.20-5.00); RDW 13.9 % (10.5-14.5); WBC 6.9 thou/uL (4.0-11.0)
[2018-02-02 17:53] LABS: CALCIUM 9.1 mg/dL (8.5-10.1); CREATININE 0.8 mg/dL (0.6-1.0); POTASSIUM 4.1 mmol/L (3.5-5.1)
== END 2018-02-02 18:26 | disposition home or self-care (01) | DRG 287 ==
LOC: ER 13:44 → 2N 15:33
PROVIDERS: Emergency Medicine; Internal Medicine Cardiovascular Disease
PROC: B2151ZZ Fluoroscopy of Left Heart using Low Osmolar Contrast (ICD-10-PCS; principal; 2018-02-02)
PROC: B2111ZZ Fluoroscopy of Multiple Coronary Arteries using Low Osmolar Contrast (ICD-10-PCS; principal; 2018-02-02)
PROC: 4A023N7 Measurement of Cardiac Sampling and Pressure, Left Heart, Percutaneous Approach (ICD-10-PCS; principal; 2018-02-02)
DX: R07.9 Chest pain, unspecified (principal); F41.9 Anxiety disorder, unspecified; I10 Essential (primary) hypertension; K21.9 Gastro-esophageal reflux disease without esophagitis; K44.9 Diaphragmatic hernia without obstruction or gangrene; M19.90 Unspecified osteoarthritis, unspecified site; E66.9 Obesity, unspecified; Z68.33 Body mass index [BMI] 33.0-33.9, adult; Z98.891 History of uterine scar from previous surgery; Z98.1 Arthrodesis status; Z87.891 Personal history of nicotine dependence; Z85.41 Personal history of malignant neoplasm of cervix uteri; Z90.710 Acquired absence of both cervix and uterus; Z90.49 Acquired absence of other specified parts of digestive tract; Z86.010 Personal history of colon polyps; Z87.11 Personal history of peptic ulcer disease; Z79.899 Other long term (current) drug therapy; Z88.0 Allergy status to penicillin; Z88.2 Allergy status to sulfonamides; Z88.8 Allergy status to other drugs, medicaments and biological substances; Z91.041 Radiographic dye allergy status; Z82.49 Family history of ischemic heart disease and other diseases of the circulatory system
CPT/HCPCS: 10081

== ENCOUNTER 2018-02-04 11:50 | Emergency (ER) | payer OTHER ==
[~2018-02-04] VITALS: Ht 160 cm; Wt 83.9 kg
--- NOTE | ~2018-02-04 | EKG ---
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[facility] : 1965 Requested By: Shashank Jj Order Number: [id number] MD: Tristen Gonzalez Measurements Intervals [place] Rate: 78 P: 66 IN: 156 QRS: -13 QRSD: 89 T: 50 QT: 395 QTc: 450 Interpretive Statements Sinus rhythm Normal tracing Compared to ECG 02/01/2018 22:53:11 No significant changes Electronically Signed On 02-05-2018 8:01:54 CDT by Tristen Gonzalez [email or web address] <ELECTRONICALLY SIGNED> By: Tristen Gonzalez MD, [facility] 02/05/18 0801 1205 1205 Tristen Gonzalez MD, [facility] /EPI
[~2018-02-04 11:50] MED LIST changes: +VALIUM5 MG PO
[2018-02-04 12:06] LABS: URINE BILIRUBIN NEGATIVE (Negative); URINE BLOOD NEGATIVE (Negative); URINE CLARITY CLEAR; URINE COLOR YELLOW; URINE GLUCOSE-RANDOM* NEGATIVE (Negative); URINE KETONES NEGATIVE (Negative); URINE LEUKOCYTES-REFLEX NEGATIVE (Negative); URINE NITRITE-REFLEX NEGATIVE (Negative); URINE PROTEIN (DIPSTICK) NEGATIVE (Negative); URINE UROBILINOGEN 0.2 E.U./dl (0.2-1.0)
[2018-02-04 12:23] LABS: ABSOLUTE NEUTROPHILS 4.5 thou/uL (1.4-8.2); EOSINOPHILS 1.3 % (0.0-3.0); HEMATOCRIT 38.4 % (37.0-47.0); HEMOGLOBIN 13.1 gm/dL (12.0-15.0); LYMPHOCYTES 35.1 % (24.0-44.0); MCH 29.2 pg (26.0-34.0); MCHC 34.1 g/dL (28.0-37.0); MCV 85.7 fL (80.0-100.0); MONOCYTES 4.9 % (1.0-8.0); PLATELET COUNT 316 thou/uL (150-400); POLYS 57.7 % (36.0-66.0); RBC 4.48 mil/uL (4.20-5.00); WBC 7.8 thou/uL (4.0-11.0)
[2018-02-04 12:27] LABS: ANION GAP 7 mmol/L (7-16); BUN 9 mg/dL (7-18); CALCIUM 8.9 mg/dL (8.5-10.1); CHLORIDE 106 mmol/L (98-107); CO2 27 mmol/L (21-32); CREATININE 0.8 mg/dL (0.6-1.0); GLUCOSE 99 mg/dL (74-106); SODIUM 140 mmol/L (136-145)
[2018-02-04 12:35] LABS: ALBUMIN 3.7 g/dL (3.4-5.0); LIPASE 272 U/L (73-393); SGOT 17 U/L (15-37); SGPT 23 U/L (30-65); TOTAL BILIRUBIN 0.2 mg/dL (<0.1-1.0); TOTAL PROTEIN 7.2 g/dL (6.4-8.2); TROPONIN-I <0.06 ng/mL (<0.06)
[2018-02-04] MEDS ORDERED: NORCO 5-325 TA1 EACH PO (13:39)
== END 2018-02-04 14:01 | disposition home or self-care (01) ==
LOC: ER 11:50
PROVIDERS: Emergency Medicine
DX: R10.13 Epigastric pain (principal); R10.11 Right upper quadrant pain; R14.0 Abdominal distension (gaseous); Z98.890 Other specified postprocedural states; G89.29 Other chronic pain; M54.9 Dorsalgia, unspecified; Z88.6 Allergy status to analgesic agent; Z88.0 Allergy status to penicillin; Z88.2 Allergy status to sulfonamides; Z91.041 Radiographic dye allergy status; Z90.710 Acquired absence of both cervix and uterus